=== PATIENT | male | born 1975 | race Caucasian/White ===

== ENCOUNTER 2021-11-08 18:04 | Emergency (ER) | payer SELFPAY ==
[2021-11-08] MEDS ORDERED: OXYMETAZOLINE HCL NASAL SPRAY 30 ML BOTTLE NS ONE ×2 (19:00→19:22)
[2021-11-08 19:45] VITALS: BP 134/70
--- NOTE | 2021-11-08 20:00 | NUR ---
PATIENT BIB SELF FROM HOME DUE TO EPISODE OF EPISTAXIS. PT IS AAO X 4, NO SIGN OF DISTRESS, BREATHING EVEN AND UNLABORED. BLEEDING STILL ONGOING DURING TRIAGE, PRESSURE WERE APPLIED USING A CLAMP AND 4X4'S. WILL CONT TO MONITOR AND CARRY OUT MD ORDERS.
--- NOTE | 2021-11-08 20:10 | NUR ---
PT SEEN AND EXAMINED BY DR GUZMAN.
--- NOTE | 2021-11-08 20:25 | NUR ---
Patient discharged to home in stable condition. Written and verbal after care instructions given. Patient verbalizes understanding of instruction. Erwin is ambulatory with a steady gait
== END 2021-11-08 20:25 | disposition home or self-care (01) ==
LOC: ER 18:07
DX: R04.0 Epistaxis (principal)